=== PATIENT | female | born 1975 | race Caucasian/White ===

== ENCOUNTER → 2017-07-26 | Outpatient (CLI) | payer OTHER ==
[~2017-07-26] MED LIST: CETI10CA8 PO; DOCU-416 PO; IBUP800T37 PO; OXYC-865 PO
--- NOTE | 2017-07-27 16:15 | RADIOLOGY IMAGING REPORT ---
FACILITY: [facility] PATIENT NAME: EBER SAENZ : [id number] MR: [id number]: [id number] EXAM DATE: [id number] ORDERING PHYSICIAN: DORCAS MCLAUGHLIN TECHNOLOGIST: Uzma Rousseau PROCEDURE:BILATERAL DIGITAL SCREENING MAMMOGRAM WITH CAD ASSISTED INTERPRETATION & 3D TOMOSYNTHESIS COMPARISON:None. INDICATIONS:BASELINE SCREENING FINDINGS: Scattered fibroglandular tissue. No suspicious mass, microcalcifications or architectural distortion. DIAGNOSTIC CATEGORY 1--NEGATIVE. RECOMMENDATIONS: ROUTINE MAMMOGRAM AND CLINICAL EVALUATION. IMPRESSION: BIRADS 1: Normal exam Annual mammographic screening recommended. Dictated by: Ralph Weeks on 07/27/2017 at 9:51 Transcribed by: SHERWIN on 07/27/2017 at 9:56 Approved by: Ralph Weeks on 07/27/2017 at 16:14 [facility]
== END ==
LOC: MAMO 01:48
PROVIDERS: ATTEND Student in an Organized Health Care Education/Training Program
DX: Z12.31 Encounter for screening mammogram for malignant neoplasm of breast (principal)
CPT/HCPCS: 77063; 77067